=== PATIENT | female | born 1980 | race Two or more races ===

== ENCOUNTER 2017-06-25 15:50 | Outpatient (CLI) | payer BC ==
--- NOTE | 2017-06-25 16:38 | Non Stress Test Report ---
Non Stress Test Datetime Report Generated by CPN: 06/25/2017 16:38 INDICATION Indication for Study (NST) Other: GDM MONITORING Monitor Explained: Monitor Explained; Test Explained; Patient Verbalized Understanding Time on Monitor: 06/25/2017 16:06 Time off Monitor: 06/25/2017 16:35 NST Duration: 29 NST INTERVENTIONS NST Interventions: PO Hydration; Reposition Patient Physician Notified NST: J Sandoval CNM BABY A: [id number] BABY A Movement : Present Contraction Frequency : 0 FHR Baseline : 135 Accelerations : 15X15 Decelerations : None Variability : Moderate 6-25bpm NST Review: Meets Criteria for Reactive NST NST Review and Verified By : Socrates hCicas RNC NST Results: Reactive NST REPORT Report Trigger: Send Report
== END 2017-06-25 16:39 | disposition home or self-care (01) ==
LOC: LC 15:50
PROVIDERS: ATTEND Specialist
PROC: 4A1HXCZ Monitoring of Products of Conception, Cardiac Rate, External Approach (ICD-10-PCS; principal; 2017-06-25)
DX: O24.419 Gestational diabetes mellitus in pregnancy, unspecified control (principal); Z3A.34 34 weeks gestation of pregnancy
CPT/HCPCS: 59025

== ENCOUNTER → 2017-08-12 | Outpatient (CLI) | payer BC ==
--- NOTE | 2017-08-12 16:35 | XCELERA REPORT ---
[address] [address] Lower Extremity Venous Evaluation Name: DAYANNA DARBY Age: 37 yrs Gender: Female : 1980 Patient Status: Outpatient Patient Location: Study Date: 08/12/2017 03:52 PM Procedure: Color flow and duplex imaging of the veins of the right lower extremity as well as the left Common Femoral vein. Reason For Study: RLE PAIN Ordering Physician: ANALY DRISCOLL Performed By: Maryjo Krishnamurthy Right Sided Venous Evaluation Normal vessel filling wall to wall, compression and augmentation as well as Colour flow down to the infrageniculate veins. Left Sided Venous Evaluation The left common femoral vein is fully compressible. Spontaneous and phasic flow is present in the left common femoral vein. Interpretation Summary No duplex evidence of DVT or obstruction in the right lower extremity nor in the left Common Femoral vein. : ANALY DRISCOLL > Tru Nicholson
== END ==
LOC: SP 15:49
PROVIDERS: ATTEND Student in an Organized Health Care Education/Training Program
DX: M79.604 Pain in right leg (principal)
CPT/HCPCS: 93971

== ENCOUNTER 2019-12-21 11:53 | Outpatient (CLI) | payer BC | END 2019-12-21 12:35 | disposition home or self-care (01) | LOC: LC 11:53 | PROVIDERS: ATTEND Student in an Organized Health Care Education/Training Program | DX: O24.419 Gestational diabetes mellitus in pregnancy, unspecified control (principal); Z3A.36 36 weeks gestation of pregnancy | CPT/HCPCS: 59025 ==

== ENCOUNTER 2019-12-24 12:23 | Outpatient (CLI) | payer BC ==
--- NOTE | 2019-12-24 13:27 | Non Stress Test Report ---
Non Stress Test Datetime Report Generated by CPN: 12/24/2019 13:27 DEMOGRAPHIC EGA NST: 36.5 EGA NST: 36.2 INDICATION Indication for Study (NST) Other: AMA Indication for Study (NST) Other: AMA nonreactive NST VITAL SIGNS Temperature - NST: 98.5 Temperature - NST: 98.1 Pulse - NST: 93 Pulse - NST: 87 RESP - NST: 18 RESP - NST: 15 NBPSYS NST: 96 NBPDIA NST: 52 MONITORING Monitor Explained: Monitor Explained; Test Explained; Patient Verbalized Understanding Monitor Explained: Monitor Explained; Test Explained; Patient Verbalized Understanding Time on Monitor: 12/24/2019 12:58 Time on Monitor: 12/21/2019 12:10 Time off Monitor: 12/24/2019 13:20 NST Duration: 22 NST INTERVENTIONS NST Interventions: PO Hydration; Reposition Patient NST Interventions: PO Hydration Physician Notified NST: Cyndee Romero CNM Physician Notified NST: N Nogueira CNM BABY A: [id number] BABY A Movement : Present Movement : Present Contraction Frequency : rare Contraction Frequency : OCC Contraction Frequency : rare FHR Baseline : 125 Accelerations : 15X15 Accelerations : 15X15 Decelerations : None Variability : Moderate 6-25bpm Variability : Moderate 6-25bpm NST Review: Meets Criteria for Reactive NST NST Review: Meets Criteria for Reactive NST NST Review and Verified By : Fatou Hoskins RN NST Review and Verified By : Samm Eubanks RN NST Results: Reactive NST Results: Reactive NST COMMENTS NST Comments: CNM on unit NST REPORT Report Trigger: Send Report
== END 2019-12-24 13:28 | disposition home or self-care (01) ==
LOC: LC 12:23
PROVIDERS: ATTEND Obstetrics & Gynecology
PROC: 4A1HXCZ Monitoring of Products of Conception, Cardiac Rate, External Approach (ICD-10-PCS; principal; 2019-12-24)
DX: O24.419 Gestational diabetes mellitus in pregnancy, unspecified control (principal); O40.3XX0 Polyhydramnios, third trimester, not applicable or unspecified; O09.523 Supervision of elderly multigravida, third trimester; Z3A.36 36 weeks gestation of pregnancy
CPT/HCPCS: 59025

== ENCOUNTER 2020-01-04 12:36 | Outpatient (CLI) | payer BC | END 2020-01-04 13:24 | disposition home or self-care (01) | LOC: LC 12:36 | PROVIDERS: ATTEND Obstetrics & Gynecology | PROC: 4A1HXCZ Monitoring of Products of Conception, Cardiac Rate, External Approach (ICD-10-PCS; principal; 2020-01-04) | DX: O24.419 Gestational diabetes mellitus in pregnancy, unspecified control (principal); Z3A.38 38 weeks gestation of pregnancy | CPT/HCPCS: 59025 ==

== ENCOUNTER 2020-01-19 01:43 | Inpatient (IN) | payer BC ==
[2020-01-19 02:29] LABS: APPEARANCE,URINE SLIGHTLY-CLOUDY; BILIRUBIN,URINE NEGATIVE (NEGATIVE); COLOR,URINE YELLOW; GLUCOSE, URINE NEGATIVE (NEGATIVE); KETONES,URINE NEGATIVE (NEGATIVE); LEUKOCYTE ESTERASE,URINE NEGATIVE (NEGATIVE); NITRITE,URINE NEGATIVE (NEGATIVE); PROTEIN,URINE NEGATIVE (NEGATIVE); URINE SPECIFIC GRAVITY 1.024; UROBILINOGEN,URINE NEGATIVE mg/dL (<2.0)
[2020-01-19 02:47] LABS: URINE AMPHETAMINES SCREEN NEGATIVE; URINE BARBITURATES SCREEN NEGATIVE; URINE BENZODIAZEPINES SCREEN NEGATIVE; URINE COCAINE SCREEN NEGATIVE; URINE MARIJUANA (THC) SCREEN NEGATIVE; URINE METHADONE SCREEN NEGATIVE; URINE PHENCYCLIDINE SCREEN NEGATIVE
[2020-01-19] MEDS ORDERED: OXYTOCIN 10 UNIT/ML VIAL ONE (03:18)
[2020-01-19] MEDS ORDERED: OXYTOCIN/NORMAL SALINE 20 UNIT/1,000 ML RTUINJ ONE (03:18)
[2020-01-19] MEDS ORDERED: LIDOCAINE 1% INJ-PF (10 MG/ML) 30 ML SDV ONE (03:18)
[2020-01-19] MEDS ORDERED: RINGERS SOLUTION,LACTATED 1,000 ML IV PRN (03:18)
[2020-01-19] MEDS ORDERED: MISOPROSTOL 0.2 MG TABLET ONE (03:18)
[2020-01-19 03:49] LABS: ABSOLUTE LYMPHOCYTES (AUTO) 1.8 10^3/uL (0.5-4.7); ABSOLUTE MONOCYTES (AUTO) 0.5 10^3/uL (0.1-1.4); ABSOLUTE NEUT (AUTO) 9.6 10^3/uL (1.7-8.2); BASOPHILS % (AUTO) 0.2 % (0-2); EOSINOPHILS % (AUTO) 0.1 % (0-6); HEMATOCRIT 38.4 % (36.0-47.0); HEMOGLOBIN 13.2 g/dL (12.0-15.5); LYMPHOCYTES % (AUTO) 14.9 % (13-45); MEAN CORPUSCULAR HEMOGLOBIN 36.2 pg (27.0-33.4); MEAN CORPUSCULAR HGB CONC 34.4 g/dL (32.0-36.0); MEAN CORPUSCULAR VOLUME 105 fl (80-97); MONOCYTES % (AUTO) 4.2 % (3-13); PLATELET COUNT 176 10^3/uL (150-450); RED BLOOD COUNT 3.64 10^6/uL (3.72-5.28); RED CELL DISTRIBUTION WIDTH 13.3 % (11.5-14.0); SEGMENTED NEUTROPHILS % (AUTO) 80.6 % (42-78); TOTAL CELLS COUNTED % (AUTO) 100 %; WHITE BLOOD COUNT 11.9 10^3/uL (4.0-10.5)
[2020-01-19] MEDS ORDERED: PHENYLEPHRINE HCL INJ/PF 10 MG/1 ML SDV ONE (03:58)
[2020-01-19] MEDS ORDERED: EPHEDRINE SULFATE INJ 50 MG/1 ML AMPULE ONE (03:58)
[2020-01-19] MEDS ORDERED: FENTANYL CITRATE INJ/PF 100 MCG/2 ML AMPUL ONE (03:58)
[2020-01-19] MEDS ORDERED: FENTANYL/BUPIVACAINE/NS/PF 300 MCG/150 ML RTUINJ EPI ONE (03:59)
[2020-01-19] MEDS ORDERED: BUPIVACAINE HCL 0.25 % INJ/PF (2.5 MG/1 ML) 30 ML VIAL ONE (03:59)
[2020-01-19] MEDS ORDERED: RINGERS SOLUTION,LACTATED 1,000 ML IV ONE (04:00)
--- NOTE | 2020-01-19 07:02 | Admission Physical ---
Datetime Report Generated by CPN: 01/19/2020 07:02 CURRENT ADMISSION Chief Complaint: Uterine Contractions Indication for Induction: Not Applicable Admit Impression : Term, Intrauterine Admit Plan: Admit to Unit; Initiate Labor Protocol Admit Plan- Other: Previous successful TOLAC ALLERGIES Medication Allergies: No Medication Allergies: No Known Allergies (12/21/2019) Latex: No Latex Allergies Food Allergies: none Environmental Allergies: none OBSTETRICAL HISTORY EDC: 01/16/2020 00:00 : 3 Para: 2 Term: 2 : 0 SAB: 0 IAB: 0 Ectopic: 0 Livin Cesareans: 1 VBACs: 1 Multiple Births: 0 Gestational Diabetes: Yes Rh Sensitization: No Incompetent Cervix: No NICK: No Infertility: No ART Treatment: No Uterine Anomaly: No IUGR: No Hx Previous C/S: Yes Macrosomia: No Hx Loss/Stillborn: No PIH: No Hx : No Placenta Previa/Abruption: No Depression/PP Depression: No PTL/PROM: No Post Hemorrhage: Yes Current Procedures: Ultrasound; NST Obstetrical History Comments: 2014 ( distress) 2016 G3- Current SEE RECORDS Alcohol: No Marijuana : No Cocaine: No Other Illicit Drugs: No Cigarettes: Never Smoker. [id number] MEDICAL HISTORY Diabetes: Yes Diabetes Type: Gestational Diabetes Blood Transfusion: Yes Pulmonary Disease (Asthma, TB): No Breast Disease: No Hypertension: No Design Engineer Surgery: No Heart Disease: No Hosp/Surgery: Yes Autoimmune Disorder: No Anesthetic Complications: No Abnormal Pap Smear: No Neuro/Epilepsy: No Psychiatric Disorders: No Other Medical Diseases: No Hepatitis/Liver Disease: No Significant Family History: No Varicosities/Phlebitis: No Trauma/Violence : No Thyroid Dysfunction: No INFECTIOUS HISTORY Gonorrhea: No Chlamydia: No Tuberculosis: No Syphilis: No Hepatitis: No HIV/AIDS Exposure: No Rash or Viral Illness: No HPV: No PHYSICAL EXAM General: Normal HEENT: Normal Neurologic: Normal Thyroid: Normal Heart: Normal Lungs: Normal Breast: Normal Back: Normal Abdomen: Normal Genitourinary Exam: Normal Extremities: Normal DTRs: Normal Pelvic Type: Adequate Vital Signs: Reviewed VAGINAL EXAM Dilatation: 5 Effacement: 80 Station: -1 MEMBRANES Pooling: Negative Membranes: Intact FETUS A EGA: 40.3 Monitoring: External US FHR- Baseline: 150 Variability: Moderate 6-25bpm Accelerations: 15X15 Decelerations: None FHR Category: Category I Estimated Weight (gm): 3500 Presentation: Vertex PLANS FOR LABOR AND DELIVERY Labor and Delivery: None Pain Management: Epidural Feeding Preference: Breast Benefit of Breast Feed Discussed: Yes Circumcision: N/A INFORMED CONSENT Signature: with User ID: [email or web address]
[2020-01-19] MEDS ORDERED: MAGNESIUM HYDROXIDE SUSP 30 ML UDCUP PO PRN (08:16)
[2020-01-19] MEDS ORDERED: PSEUDOEPHEDRINE HCL 30 MG TABLET PO PRN (08:16)
[2020-01-19] MEDS ORDERED: MEASLES,MUMPS&RUBELLA VACC/PF 0.5 ML VIAL SUBCUT PRN (08:16)
[2020-01-19] MEDS ORDERED: OXYTOCIN/NORMAL SALINE 20 UNIT/1,000 ML RTUINJ IV PRN (08:16)
[2020-01-19] MEDS ORDERED: GLYCERIN/WITCH HAZEL LEAF 1 EACH MED..WIPE TP PRN (08:16)
[2020-01-19] MEDS ORDERED: PROMETHAZINE HCL 25 MG TABLET PO PRN (08:16)
[2020-01-19] MEDS ORDERED: PROMETHAZINE HCL 25 MG SUPP.RECT PR PRN (08:16)
[2020-01-19] MEDS ORDERED: PROMETHAZINE HCL INJ 25 MG/1 ML VIAL IV PRN (08:16)
[2020-01-19] MEDS ORDERED: ACETAMINOPHEN 325 MG TABLET PO PRN (08:16)
[2020-01-19] MEDS ORDERED: DIPHENHYDRAMINE HCL 25 MG CAPSULE PO PRN (08:16)
[2020-01-19] MEDS ORDERED: DIPH/PERTUSS(ACELL)/TETANUS VAC/PF 0.5 ML SYR (>=10YO) IM PRN (08:16)
[2020-01-19] MEDS ORDERED: DIBUCAINE 1% OINTMENT 28 GM TP PRN (08:16)
[2020-01-19] MEDS ORDERED: ACETAMINOPHEN 650 MG SUPP.RECT PR PRN (08:16)
[2020-01-19] MEDS ORDERED: ACETAMINOPHEN WITH CODEINE #3 TABLET PO PRN ×2 (08:16)
[2020-01-19] MEDS ORDERED: ZOLPIDEM TARTRATE 5 MG TABLET PO PRN (08:16)
[2020-01-19] MEDS ORDERED: NA PHOS,M-B/NA PHOS,DI-BA (ADULT) 133 ML ENEMA PR PRN (08:16)
[2020-01-19] MEDS ORDERED: BENZOCAINE/MENTHOL AEROSOL SPRAY 56 ML TOP PRN (08:16)
--- NOTE | 2020-01-19 10:19 | Delivery Summary ---
Del Sum A-C Datetime Report Generated by CPN: 01/19/2020 10:19 DELIVERY PERSONNEL DELIVERY PERSONNEL: [id number] Delivery Doctor:: Gisele Mercado MD Labor and Delivery Nurse:: Ashley Chan RNcapacity analyst Nurse:: Maggie Godinez RN Nursery Nurse:: Kinga Becker RN Nursery Nurse:: Mirian Watters RN Rice Farmer/SEWING MACHINE OPERATOR SEMIAUTOMATIC: Sol Shankar CNA II MATERNAL INFORMATION Delivery Anesthesia: Epidural Medications After Delivery: Pitocin Bolus-Please Comment Meds After Delivery Comment: 20 Units, 1000 ml NSS Delivery QBL: 250 Maternal Complications: None Provider Comments: uterine scar intact LABOR SUMMARY EDC: 01/16/2020 00:00 No. Babies in Womb: 1 Attempted: Yes Labor Anesthesia: Epidural LABOR INFORMATION Reason for Induction: Not Applicable Onset of Labor: 01/19/2020 03:42 Complete Dilatation: 01/19/2020 07:35 Oxytocin: Augmentation Group B Beta Strep: Negative Antibiotics # of Doses: 0 Antibiotics Time of Last Dose: 0 Name of Antibiotic Given: N/A Steroids Given: None Reason Steroids Not Administered: Not Applicable MEMBRANES Membranes Rupture Method: Artificial Rupture of Membranes: 01/19/2020 06:47 Length of Rupture (hr): 1.18 Amniotic Fluid Color: Light Meconium Amniotic Fluid Amount: Small Amniotic Fluid Odor: Normal STAGES OF LABOR Stage 1 hr: 3 Stage 1 min: 53 Stage 2 hr: 0 Stage 2 min: 23 Stage 3 hr: 0 Stage 3 min: 3 Total Time in Labor hr: 4 Total Time in Labor min: 19 VAGINAL DELIVERY Episiotomy: None Laceration #1: None Laceration Extension #1: N/A Laceration Repair: Not Applicable Sponge Count Correct: N/A Sharps Count Correct: N/A CSECTION DELIVERY Primary Indication: N/A Secondary Indication: N/A CSection Incidence: N/A Labor: N/A Elective: N/A CSection Incision: N/A BABY A INFORMATION Delivery Date/Time: 01/19/2020 07:58 Method of Delivery: Vaginal Nurse Controlled Delivery: No Born in Route : No : Successful Forceps: N/A Vacuum Extraction: N/A Shoulder Dystocia : No PRESENTATION/POSITION BABY A Presentation: Cephalic Cephalic Presentation: Vertex Vertex Position: Right Occipital Anterior Breech Presentation: N/A PLACENTA INFORMATION BABY A Placenta Delivery Time : 01/19/2020 08:01 Placenta Method of Delivery: Spontaneous Placenta Status: Delivered SCORES BABY A Heart Rate 1 min: >100 bpm Resp Effort 1 min: Good Cry Reflex Irritability 1 min: Cough or Sneeze or Pulls Away Muscle Tone 1 min: Active Motion Color 1 min: Body [place], Extremities Blue Resuscitation Effort 1 min: Tactile Stimulation SCORE 1 MIN: 9 Heart Rate 5 min: >100 bpm Resp Effort 5 min: Good Cry Reflex Irritability 5 min: Cough or Sneeze or Pulls Away Muscle Tone 5 min: Active Motion Color 5 min: Body [place], Extremities Blue Resuscitation Effort 5 min: N/A SCORE 5 MIN: 9 Resuscitation Effort 10 min: N/A INFANT INFORMATION BABY A Gestational Age at Delivery: 40.3 Gestational Status: Full Term- 39- 40.6 Weeks Infant Outcome : Liveborn Condition : Stable Sex: Female IDENTIFICATION BABY A Infant Verification Date/Time: 01/19/2020 08:34 ID Band Number: [id number] Mother's Name Verified: Yes Infant RN Verifying : MMobley, RN Additional Verifying Personnel: JNeibuhr, RN WEIGHT/LENGTH BABY A Birthweight (gm): 3460 Infant Weight (lb): 7 Weight (oz): 10 Infant Length (in): 20.25 Infant Length (cm): 51.44 CORD INFORMATION BABY A No. Cord Vessels: 3 Nuchal Cord : N/A Cord Blood Taken: Yes-For Eval (Mom's Blood Type - or O+) Suction: Mouth; Nose ASSESSMENT BABY A Complications: Multiple Variable Decels; Meconium Physical Findings at Delivery: Within Normal Limits Respirations: Appears Normal Skin to Skin: Yes Skin to Skin Time (min): 75 Teradata Developer/ALS Called : No Care By: Mirian Watters RN Transferred To: Remains with Mother BABY B INFORMATION : N/A SIGNATURES Signature: with User ID: [email or web address]
[2020-01-19] MEDS: FAMOTIDINE 20 MG TABLET PO SCH ×2 (11:18→21:09)
[2020-01-19] MEDS: DOCUSATE SODIUM 100 MG CAPSULE PO SCH ×2 (11:18→17:16)
[2020-01-19] MEDS: FERROUS SULFATE 325 MG TABLET PO SCH ×2 (11:18→17:16)
[2020-01-19] MEDS: PRENATAL VITAMIN W DHA CAPSULE PO SCH (11:19)
[2020-01-19] MEDS: SENNOSIDES/DOCUSATE 8.6-50 MG 1 EACH TABLET PO SCH (11:19)
[2020-01-19] MEDS: IBUPROFEN 800 MG TABLET PO SCH ×2 (13:42→21:07)
[2020-01-20 07:31] LABS: HEMATOCRIT 30.7 % (36.0-47.0); HEMOGLOBIN 10.6 g/dL (12.0-15.5); MEAN CORPUSCULAR HGB CONC 34.7 g/dL (32.0-36.0); MEAN CORPUSCULAR VOLUME 107 fl (80-97); PLATELET COUNT 157 10^3/uL (150-450); RED BLOOD COUNT 2.87 10^6/uL (3.72-5.28); RED CELL DISTRIBUTION WIDTH 13.6 % (11.5-14.0); WHITE BLOOD COUNT 10.5 10^3/uL (4.0-10.5)
[2020-01-20] MEDS: FAMOTIDINE 20 MG TABLET PO SCH ×2 (10:21→22:00)
[2020-01-20] MEDS: SENNOSIDES/DOCUSATE 8.6-50 MG 1 EACH TABLET PO SCH (10:21)
[2020-01-20] MEDS: FERROUS SULFATE 325 MG TABLET PO SCH ×2 (10:21→17:13)
[2020-01-20] MEDS: DOCUSATE SODIUM 100 MG CAPSULE PO SCH ×2 (10:21→17:13)
[2020-01-20] MEDS: PRENATAL VITAMIN W DHA CAPSULE PO SCH (10:21)
--- NOTE | 2020-01-20 10:30 | PDOC PROGRESS REPORT ---
Subjective-OB Progress Note for:: 01/20/20 Subjective: reports bleeding slowing, pain controlled with current meds. denies needs Physical Exam (OB) Vital Signs: Temp Pulse Resp BP Pulse Ox 97.7 F 71 16 100/63 100 01/20/20 07:41 01/20/20 07:41 01/20/20 07:41 01/20/20 07:41 01/20/20 07:41 Intake & Output 01/19/20 01/20/20 01/21/20 06:59 06:59 06:59 Intake Total 1050 Balance 1050 Weight 62.596 kg - Abdomen Description: Soft Hernia Present: No Fundal Description: Firm, Midline Fundal Height: u/u - u/2 - Abdominal Distension: No distension Tenderness: Nontender - Extremities Lower extremities: Norbert's sign - neg Calf: Normal, Nontender Objective-Diagnostic Laboratory: 01/20/20 07:07 01/20/20 07:07 WBC 10.5 RBC 2.87 L Hgb 10.6 L D Hct 30.7 L MCV 107 H MCH 37.0 H MCHC 34.7 RDW 13.6 Plt Count 157 Assessment and Plan(PN) - Assessment and Plan (1) (vaginal after ) Is this a current diagnosis for this admission?: Yes - Time Spent with Patient Time with patient: Less than 15 minutes - Disposition Anticipated Discharge: Home Within: within 24 hours
[2020-01-20] MEDS: IBUPROFEN 800 MG TABLET PO SCH ×3 (12:44→22:00)
[2020-01-20] MEDS ORDERED: FAMOTIDINE 20 MG TABLET ONE (21:35)
[2020-01-21] MEDS: IBUPROFEN 800 MG TABLET PO SCH ×2 (07:18→16:25)
--- NOTE | 2020-01-21 10:08 | PDOC DISCHARGE SUMMARY ---
Impression - Admit/DC Date/PCP Admission Date/Primary Care Provider: 01/19/20 03:14 TED CHRISTIAN MD Discharge Date: 01/21/20 - Discharge Diagnosis (1) (vaginal after ) Is this a current diagnosis for this admission?: Yes (2) Spontaneous onset of labor Is this a current diagnosis for this admission?: Yes - Additional Information Discharge Diet: Regular Discharge Activity: Balance Activity w/Rest, Pelvic Rest Referrals: TED CHRISTIAN MD [Primary Care Provider] - Prescriptions: Ibuprofen [Motrin 800 mg Tablet] 800 mg PO Q8HP PRN #60 tablet PRN Reason: Home Medications: Ibuprofen [Motrin 800 mg Tablet] 800 mg PO Q8HP PRN #60 tablet 01/21/20 Vit/Dha [ Multi + Dha Capsule] 1 cap PO DAILY capsule 01/21/20 Results Laboratory Results: WBC 10.5 10^3/uL (4.0-10.5) 01/20/20 07:07 RBC 2.87 10^6/uL (3.72-5.28) L 01/20/20 07:07 Hgb 10.6 g/dL (12.0-15.5) L D 01/20/20 07:07 Hct 30.7 % (36.0-47.0) L 01/20/20 07:07 MCV 107 fl (80-97) H 01/20/20 07:07 MCH 37.0 pg (27.0-33.4) H 01/20/20 07:07 MCHC 34.7 g/dL (32.0-36.0) 01/20/20 07:07 RDW 13.6 % (11.5-14.0) 01/20/20 07:07 Plt Count 157 10^3/uL (150-450) 01/20/20 07:07 Lymph % (Auto) 14.9 % (13-45) 01/19/20 03:35 [place] % (Auto) 4.2 % (3-13) 01/19/20 03:35 Eos % (Auto) 0.1 % (0-6) 01/19/20 03:35 Baso % (Auto) 0.2 % (0-2) 01/19/20 03:35 Absolute Neuts (auto) 9.6 10^3/uL (1.7-8.2) H 01/19/20 03:35 Absolute Lymphs (auto) 1.8 10^3/uL (0.5-4.7) 01/19/20 03:35 Absolute Monos (auto) 0.5 10^3/uL (0.1-1.4) 01/19/20 03:35 Absolute Eos (auto) 0.0 10^3/uL (0.0-0.6) 01/19/20 03:35 Absolute Basos (auto) 0.0 10^3/uL (0.0-0.2) 01/19/20 03:35 Seg Neutrophils % 80.6 % (42-78) H 01/19/20 03:35 Urine Color YELLOW 01/19/20 01:55 Urine Appearance SLIGHTLY-CLOUDY 01/19/20 01:55 Urine pH 6.0 (5.0-9.0) 01/19/20 01:55 Ur Specific [place] 1.024 01/19/20 01:55 Urine Protein NEGATIVE mg/dL (NEGATIVE) 01/19/20 01:55 Urine Glucose (UA) NEGATIVE mg/dL (NEGATIVE) 01/19/20 01:55 Urine Ketones NEGATIVE mg/dL (NEGATIVE) 01/19/20 01:55 Urine Blood NEGATIVE (NEGATIVE) 01/19/20 01:55 Urine Nitrite NEGATIVE (NEGATIVE) 01/19/20 01:55 Urine Bilirubin NEGATIVE (NEGATIVE) 01/19/20 01:55 Urine Urobilinogen NEGATIVE mg/dL (<2.0) 01/19/20 01:55 Ur Leukocyte Esterase NEGATIVE (NEGATIVE) 01/19/20 01:55 Urine Ascorbic Acid 40 (NEGATIVE) H 01/19/20 01:55 Urine Opiates Screen NEGATIVE 01/19/20 01:55 Urine Methadone Screen NEGATIVE 01/19/20 01:55 Ur Barbiturates Screen NEGATIVE 01/19/20 01:55 Ur Phencyclidine Scrn NEGATIVE 01/19/20 01:55 Ur Amphetamines Screen NEGATIVE 01/19/20 01:55 U Benzodiazepines Scrn NEGATIVE 01/19/20 01:55 Urine Cocaine Screen NEGATIVE 01/19/20 01:55 U Marijuana (THC) Screen NEGATIVE 01/19/20 01:55 RPR NONREACTIVE (NONREACTIVE) 01/19/20 03:35 Blood Type O POSITIVE 01/19/20 03:35 Antibody Screen NEGATIVE 01/19/20 03:35 Plan Plan of Treatment: follow up in 4 weeks at [facility] for post check
[2020-01-21] MEDS: FAMOTIDINE 20 MG TABLET PO SCH (10:28)
[2020-01-21] MEDS: PRENATAL VITAMIN W DHA CAPSULE PO SCH (10:28)
[2020-01-21] MEDS: DOCUSATE SODIUM 100 MG CAPSULE PO SCH (10:29)
[2020-01-21] MEDS: FERROUS SULFATE 325 MG TABLET PO SCH (10:29)
[2020-01-21] MEDS: SENNOSIDES/DOCUSATE 8.6-50 MG 1 EACH TABLET PO SCH (10:29)
[2020-01-21 12:25] VITALS: BP 110/72
== END 2020-01-21 14:33 | disposition home or self-care (01) | DRG 807 ==
LOC: LC 01:43 → LR 03:14 → 2S 10:35
PROVIDERS: ADMIT Obstetrics & Gynecology; ATTEND Obstetrics & Gynecology
PROC: 10E0XZZ Delivery of Products of Conception, External Approach (ICD-10-PCS; principal; 2020-01-19)
PROC: 10907ZC Drainage of Amniotic Fluid, Therapeutic from Products of Conception, Via Natural or Artificial Opening (ICD-10-PCS; 2020-01-19)
DX: O24.429 Gestational diabetes mellitus in childbirth, unspecified control (principal); Z37.0 Single live birth; O77.0 Labor and delivery complicated by meconium in amniotic fluid; Z3A.40 40 weeks gestation of pregnancy; O76 Abnormality in fetal heart rate and rhythm complicating labor and delivery; O34.219 Maternal care for unspecified type scar from previous cesarean delivery
CPT/HCPCS: 36415; 80307; 81005; 85025; 85027; 86592; 86850; 86900; 86901; J2370; J2590; J3010; J3490